=== PATIENT | male | born 1985 | race Hispanic/Latino ===

== ENCOUNTER 2020-11-12 19:26 | Emergency (ER) | payer OTHER ==
[~2020-11-12] VITALS: Ht 180.3 cm; Wt 83.9 kg
[2020-11-12 19:27] VITALS: BP 127/91
[2020-11-12] MEDS ORDERED: KETOROLAC 60 MG VIAL (30MG/ML) IM ONE (21:30)
[2020-11-12] MEDS ORDERED: CYCLOBENZAPRINE HCL 10 MG TABLET PO ONE (21:30)
[2020-11-12] MEDS ORDERED: CYCL10 PO (22:58)
[2020-11-12] MEDS ORDERED: NAPR-1180 PO (22:58)
[2020-11-12 23:11] VITALS: BP 138/79
== END 2020-11-12 23:12 | disposition home or self-care (01) ==
LOC: EDH 19:26
DX: S16.1XXA Strain of muscle, fascia and tendon at neck level, initial encounter (principal); S39.012A Strain of muscle, fascia and tendon of lower back, initial encounter; Z79.1 Long term (current) use of non-steroidal anti-inflammatories (NSAID); V49.49XA Driver injured in collision with other motor vehicles in traffic accident, initial encounter; Y93.89 Activity, other specified; Y92.89 Other specified places as the place of occurrence of the external cause; Y99.8 Other external cause status
CPT/HCPCS: 72125; 72131; 96372; 99285; J1885

== ENCOUNTER 2021-02-13 22:20 | Emergency (ER) | payer SELFPAY ==
[~2021-02-13] VITALS: Ht 180.3 cm; Wt 77.1 kg
[~2021-02-13 22:20] MED LIST: CYCL10TA16 PO; NAPR-1180 PO
[2021-02-13] MEDS ORDERED: ASPIRIN 325MG TAB PO ONE (23:00)
[2021-02-13 23:45] LABS: BASOPHILS % (AUTO) 0.6 % (0.0-5.0); EOSINOPHILS % (AUTO) 0.4 % (0.0-8.0); HEMATOCRIT 49.5 % (42-54); LYMPHOCYTES % (AUTO) 16.4 % (21.0-51.0); MEAN CORPUSCULAR HEMOGLOBIN 29.5 pg (27.0-33.0); MEAN CORPUSCULAR HGB CONC 33.1 g/dL (32.0-36.0); MEAN CORPUSCULAR VOLUME 89.2 fL (79-99); MONOCYTES % (AUTO) 5.7 % (3.0-13.0); NEUTROPHILS % (AUTO) 76.5 % (40.0-77.0); PLATELET COUNT (AUTO) 306 K/uL (130-400); RED BLOOD CELL COUNT(AUTO) 5.55 MIL/uL (4.50-6.20); RED CELL DISTRIBUTION WIDTH 11.9 % (11.0-15.5); WHITE BLOOD COUNT (AUTO) 13.4 K/uL (4.8-10.8)
[2021-02-13 23:59] LABS: CREATININE 0.8 mg/dL (0.5-1.5); POTASSIUM 4.1 mmol/L (3.5-5.1)
[2021-02-14 00:05] LABS: ALBUMIN 3.9 g/dL (3.5-5.0); BILIRUBIN,TOTAL 0.4 mg/dL (0.2-1.0); TOTAL PROTEIN, SERUM 7.4 g/dL (6.0-8.3)
[2021-02-14 03:07] VITALS: BP 138/87
== END 2021-02-14 03:12 | disposition home or self-care (01) ==
LOC: EDH 22:20
DX: R07.89 Other chest pain (principal); I45.10 Unspecified right bundle-branch block; F17.200 Nicotine dependence, unspecified, uncomplicated; Z79.1 Long term (current) use of non-steroidal anti-inflammatories (NSAID); Z79.82 Long term (current) use of aspirin
CPT/HCPCS: 36415; 71045; 80053; 82550; 84484; 85025; 93005

== ENCOUNTER 2021-04-19 16:16 | Emergency (ER) | payer OTHER ==
[~2021-04-19] VITALS: Ht 180.3 cm; Wt 79.4 kg
[2021-04-19] MEDS ORDERED: ACETAMINOPHEN 500 MG TABLET PO ONE (18:00)
[2021-04-19] MEDS ORDERED: ASPIRIN 325MG TAB PO ONE (18:00)
[2021-04-19 18:07] VITALS: BP 135/78
[2021-04-19] MEDS ORDERED: ALBU8.5H8 IH (19:32)
[2021-04-19] MEDS ORDERED: PSEU120T62 PO (19:32)
[2021-04-19] MEDS ORDERED: AZIT250T9 PO (19:32)
[2021-04-19] MEDS ORDERED: IBUP-2070 PO (19:32)
== END 2021-04-19 19:45 | disposition home or self-care (01) ==
LOC: EDH 16:16
DX: U07.1 COVID-19 (principal); R07.89 Other chest pain
CPT/HCPCS: 71045; 87635; 87804 ×2; 87880; 93005; 99285; C9803

== ENCOUNTER → 2022-04-10 | Outpatient (CLI) | payer OTHER ==
[~2022-04-10] MED LIST changes: +ALBU8.5H8 IH; +AZIT250T9 PO; +IBUP-2070 PO; +PSEU120T62 PO
== END | disposition home or self-care (01) ==
LOC: SHCH 11:37
PROVIDERS: ATTEND Internal Medicine
DX: R00.2 Palpitations (principal); R06.00 Dyspnea, unspecified; I10 Essential (primary) hypertension
CPT/HCPCS: 93306